=== PATIENT | male | born 1985 | race Caucasian/White ===

== ENCOUNTER → 2021-02-11 | Outpatient (CLI) | payer BC ==
[~2021-02-11] MED LIST: GADOTERATE 7.5 MMOL/15ML VIAL. IVP ONE
--- NOTE | 2021-02-11 17:48 | KCIC ---
EXAMINATION: MRI LEFT WRIST WITHOUT AND WITH IV CONTRAST CLINICAL HISTORY: Scapholunate degenerative changes, distal radial osteochondroma. History of wrist i njury 15 years ago TECHNIQUE: Multiplanar multisequential images obtained through the wrist without and with intravenous contrast. COMPARISON: Left wrist radiographs 01/14/2021 FINDINGS: TRIANGULAR FIBROCARTILAGE: Within normal limits. SCAPHOLUNATE LIGAMENT: Volar and dorsal bands poorly visualized with small foci of hypointense signal on all sequences noted in the expected location of the intermediate band corresponding to ossicles o n comparison radiographs, highly suspicious for remote tear of the scapholunate ligament complex. LUNOTRIQUETRAL LIGAMENT: Intact. FLEXOR TENDONS/CARPAL TUNNEL: Within normal limits. EXTENSOR TENDONS: Intermediate signal in the extensor carpi ulnaris tendon at the level of the ulnar head and styloid, compatible with mild tendinosis. BONES/MARROW: Curvilinear osteochondroma extending proximally from the radial aspect of the distal ra dial metadiaphysis and measuring 2.5 cm in length. This is better appreciated on the comparison radio graphs due to the slice thickness and imaging planes through the wrist on this exam. No significant c artilage cap appreciated. No evidence of significant associated marrow or overlying soft tissue edema . No suspicious contrast enhancement. No evidence of associated neurovascular impingement. Relative f lexion of the scaphoid and extension of the lunate with widening scapholunate interval is suggested, highly suspicious for scapholunate dissociation. Irregularity along the distal pole of the scaphoid, likely related to remote trauma. No evidence of acute fracture. JOINT FLUID: No significant joint effusion or synovitis. IMPRESSION: Findings highly suspicious for scapholunate dissociation with remote tear of the scapholunate ligamen t and possible remote healed distal scaphoid fracture, correlate clinically. 2.5 cm osteochondroma along the distal radial metadiaphysis without evidence of suspicious features o r significant mass effect on surrounding structures, however, evaluation is somewhat limited as descr ibed. Electronically signed by: Irving Newman DO (02/11/2021 5:45 PM) [facility]
== END ==
LOC: KCIC MRI 15:27
PROVIDERS: ATTEND Physician Assistant
DX: D16.12 Benign neoplasm of short bones of left upper limb (principal); M25.332 Other instability, left wrist; D16.02 Benign neoplasm of scapula and long bones of left upper limb
CPT/HCPCS: 73223; A9575